=== PATIENT | female | born 1975 | race Two or more races ===

== ENCOUNTER → 2016-09-21 | Outpatient (CLI) | payer OTHER | LOC: MW.CHOBGYN 12:46 | PROVIDERS: ATTEND Nurse Practitioner Women's Health | DX: R39.9 Unspecified symptoms and signs involving the genitourinary system (principal); N92.0 Excessive and frequent menstruation with regular cycle | CPT/HCPCS: 36415; 81001; 83001; 83002; 84144; 84443; 84703; 85025 ==

== ENCOUNTER → 2016-09-22 | Outpatient (CLI) | payer MEDICAID, OTHER ==
--- NOTE | 2016-09-22 16:23 | US ---
EXAMINATION: Transvaginal pelvic ultrasound HISTORY: Excessive and frequent menstruation COMPARISON: 06/24/2014 TECHNIQUE: Grayscale, color Doppler, and spectral Doppler images obtained transvaginally. FINDINGS: The uterus appears normal in size, contour, and echogenicity without a focal mass. Endomet rial stripe thickness measures 9 mm. No significant free pelvic fluid. Both the left and right ovaries appear normal size, contour, and echogenicity demonstrating normal c olor spectral Doppler flow. Small follicles noted bilaterally. No adnexal masses. IMPRESSION: Unremarkable transvaginal pelvic ultrasound.
== END ==
LOC: MW.US 12:55
PROVIDERS: ATTEND Nurse Practitioner Women's Health
DX: N92.0 Excessive and frequent menstruation with regular cycle (principal)
CPT/HCPCS: 76830; 76830-26

== ENCOUNTER 2018-09-20 03:38 | Inpatient (IN) | payer OTHER ==
[2018-09-20] MEDS ORDERED: Misoprostol 25 MCG (1/4 of 100 MCG) Tab VAG PRN ×2 (04:00)
[2018-09-20] MEDS ORDERED: Butorphanol 1 MG/ML SDV IVPUSH PRN ×2 (04:00→04:58)
[2018-09-20] MEDS ORDERED: Carboprost Tromethamine 250 MCG/1 ML Amp IM PRN ×2 (04:00→04:58)
[2018-09-20] MEDS ORDERED: Sodium Chloride 0.9% 2.5 ML Syringe FLUSH PRN ×2 (04:00→04:58)
[2018-09-20] MEDS ORDERED: Oxytocin/0.9 % Sodium Chloride 30 UNIT/500 ML BAG IV SCH ×3 (04:00→05:00)
[2018-09-20] MEDS ORDERED: Nalbuphine 10 MG/1 ML Vial IVPUSH PRN ×2 (04:00→04:58)
[2018-09-20] MEDS ORDERED: Sodium Chloride 0.9% 10 ML Syringe FLUSH PRN ×2 (04:00→04:58)
[2018-09-20] MEDS ORDERED: Ondansetron 4 MG/2 ML SDV IV PRN (04:00)
[2018-09-20] MEDS ORDERED: Sodium Chloride 0.9% 10 ML SDV IV PRN ×2 (04:00→04:58)
[2018-09-20] MEDS ORDERED: Lactated Ringers 1,000 ML IV SCH (04:00)
[2018-09-20] MEDS ORDERED: Water For Irrigation,Sterile 1,000 ML Container IRR PRN ×2 (04:00→04:58)
[2018-09-20] MEDS ORDERED: Methylergonovine 0.2 MG/1 ML Amp IM PRN ×2 (04:00→04:58)
[2018-09-20] MEDS ORDERED: Tranexamic Acid 1,000 MG in Sodium Chloride 0.9% 100 ML IV PRN ×2 (04:00→04:58)
[2018-09-20] MEDS ORDERED: Lidocaine 1% 50 ML MDV INJECT PRN ×2 (04:00→04:58)
[2018-09-20] MEDS ORDERED: Terbutaline 1 MG/ML SDV SUBCUT PRN (04:00)
[2018-09-20] MEDS ORDERED: Misoprostol 200 MCG Tab PO PRN ×2 (04:00→04:58)
--- NOTE | 2018-09-20 04:03 | PCM.LDHP ---
L&D History of Present Illness - General Date of Service: 09/20/18 Admit Problem/Dx: Admission Diagnosis/Problem Admission Diagnosis/Problem Source of Information: Patient History Limitations: Reports: No Limitations - History of Present Illness Improves with: Reports: None Worsens with: Reports: None Associated Symptoms: Reports: N - Related Data Allergies/Adverse Reactions: Allergies Allergy/AdvReac Type Severity Reaction Status Date / Time No Known Allergies Allergy Verified 09/09/18 13:15 Home Medications: Home Meds PNV95/Ferrous Fumarate/FA [ Multivitamins] 1 tab PO DAILY 01/06/15 [ History] glyBURIDE/Metformin HCl [Glyburid-Metformin 1.25-250 mg] 2.5 mg PO DAILY [History] Past Medical History - Past Health History Medical/Surgical History: Denies Medical/Surgical History - Past Surgical History Other Female Surgeries/Procedures: reversal 2008 H&P Review of Systems - Review of Systems: Review Of Systems: See Below General: Reports: No Symptoms HEENT: Reports: No Symptoms Pulmonary: Reports: No Symptoms Cardiovascular: Reports: No Symptoms Gastrointestinal: Reports: No Symptoms Genitourinary: Reports: No Symptoms Musculoskeletal: Reports: No Symptoms Skin: Reports: No Symptoms Psychiatric: Reports: No Symptoms Neurological: Reports: No Symptoms Hematologic/Lymphatic: Reports: No Symptoms Immunologic: Reports: No Symptoms L&D Exam - Exam Exam: See Below - Vital Signs Weight: 108.862 kg - OB Specific Fundal Height In cm: 38 Contraction Intensity: Mild Movement: Active Heart Tones: Present Presentation: Vertex - Freedman Score Freedman Score Cervix Position: Midposition Freedman Score Consistency: Soft Freedman Score Effacement: 51-70% Freedman Score Dilation: 1-2 cm Freedman Score Infant's Station: -3 Freedman Score Total: 6 - Exam General: Alert, Oriented HEENT: PERRLA, Conjunctiva Clear, EACs Clear, EOMI, Hearing Intact, Mucosa Moist & [place], Nares Patent, Normal Nasal Septum, Posterior Pharynx Clear, TMs Clear Neck: Supple, Trachea Midline Lungs: Clear to Auscultation, Normal Respiratory Effort Cardiovascular: Regular Rate, Regular Rhythm GI/Abdominal Exam: Normal Bowel Sounds, Soft, Non-Tender, No Organomegaly, No Distention, No Abnormal Bruit, No Mass, Pelvis Stable Rectal Exam: Normal Exam, Normal Rectal Tone Genitourinary: Normal external exam, Normal bimanual exam, Normal speculum exam Back Exam: Normal Inspection, Full Range of Motion Extremities: Normal Inspection, Normal Range of Motion, Non-Tender, No Pedal Edema, Normal Capillary Refill Skin: Warm, Dry, Intact Neurological: Cranial Nerves Intact, Reflexes Equal Bilateral Psychiatric: Alert, Normal Affect, Normal Mood Problem List Initiated/Reviewed/Updated: Yes Orders Last 24hrs: IUP 38wks gestational DM and advance maternal age admitted for elective induction.
[2018-09-20] MEDS ORDERED: Misoprostol 25 MCG (1/4 of 100 MCG) Tab PO ONE (04:47)
[2018-09-20] MEDS: Lactated Ringers 1,000 ML IV SCH ×3 (08:58→11:00)
[2018-09-20] MEDS ORDERED: fentaNYL 100 MCG/2 ML SDV ONE (10:31)
[2018-09-20] MEDS ORDERED: Ropivacaine 0.2% 2 MG/ML 20 ML SDV ONE (10:32)
[2018-09-20] MEDS ORDERED: Ropivacaine HCl/PF 100 ML ONE (10:32)
--- NOTE | 2018-09-20 11:11 | PCM.PREANE ---
Preanesthetic Assessment - Anesthesia/Transfusion/Family Hx Family History of Anesthesia Reaction: No - Review of Systems General: No Symptoms Pulmonary: No Symptoms Cardiovascular: No Symptoms Gastrointestinal: No Symptoms Neurological: No Symptoms Other: Reports: None - Physical Assessment Height: 1.57 m Weight: 108.862 kg ASA Class: 2 (tongue piercing) Mental Status: Alert & Oriented x3 Dentition: Reports: Normal Dentition ROM/Head Extension: Full - Lab Values: Laboratory Last Values WBC 9.45 K/uL (4.0-11.0) 09/20/18 04:27 RBC 4.40 M/uL (4.30-5.90) 09/20/18 04:27 Hgb 11.7 g/dL (12.0-16.0) L 09/20/18 04:27 Hct 35.9 % (36.0-46.0) L 09/20/18 04:27 MCV 81.6 fL (80.0-98.0) 09/20/18 04:27 MCH 26.6 pg (27.0-32.0) L 09/20/18 04:27 MCHC 32.6 g/dL (31.0-37.0) 09/20/18 04:27 RDW Std Deviation 39.6 fl (28.0-62.0) 09/20/18 04:27 RDW Coeff of Delaney 13 % (11.0-15.0) 09/20/18 04:27 Plt Count 244 K/uL (150-400) 09/20/18 04:27 MPV 10.70 fL (7.40-12.00) 09/20/18 04:27 Nucleated RBC % 0.0 /100WBC 09/20/18 04:27 Nucleated RBCs # 0 K/uL 09/20/18 04:27 Blood Type A POSITIVE 09/20/18 04:27 Antibody Screen NEGATIVE 09/20/18 04:27 - Allergies Allergies/Adverse Reactions: Allergies Allergy/AdvReac Type Severity Reaction Status Date / Time No Known Allergies Allergy Verified 09/09/18 13:15 - Acknowledgements Anesthesia Type Planned: Epidural Pt an Appropriate Candidate for the Planned Anesthesia: Yes Alternatives and Risks of Anesthesia Discussed w Pt/Guardian: Yes Pt/Guardian Understands and Agrees with Anesthesia Plan: Yes PreAnesthesia Questionnaire - Past Health History Medical/Surgical History: Denies 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 reversed 2009 - Past Surgical History Other Female Surgeries/Procedures: reversal 2008 - SUBSTANCE USE Smoking Status *Q: Never Smoker Second Hand Smoke Exposure: No Recreational Drug Use History: No - HOME MEDS Home Medications: Home Meds PNV95/Ferrous Fumarate/FA [ Multivitamins] 1 tab PO DAILY 01/06/15 [ History] glyBURIDE/Metformin HCl [Glyburid-Metformin 1.25-250 mg] 2.5 mg PO DAILY [History] - CURRENT (IN HOUSE) MEDS Current Meds: Current Medications Butorphanol Tartrate (Stadol) 1 mg IVPUSH Q1H PRN PRN Reason: Pain Carboprost Tromethamine (Hemabate Ds) 250 mcg IM ASDIRECTED PRN PRN Reason: Post Hemorrhage Oxytocin/Sodium Chloride (Oxytocin 30 Unit/500 Ml-Ns) 30 unit in 500 mls @ 2 mls/hr IV TITRATE JORDEN; Protocol Lactated Ringer's (Ringers, Lactated) 1,000 mls @ 150 mls/hr IV ASDIRECTED JORDEN Last Admin: 09/20/18 11:00 Dose: 150 mls/hr Oxytocin/Sodium Chloride (Oxytocin 30 Unit/500 Ml-Ns) 30 unit in 500 mls @ 500 mls/hr IV TITRATE JORDEN Tranexamic Acid 1,000 mg/ (Sodium Chloride) 110 mls @ 660 mls/hr IV ONETIME PRN PRN Reason: Bleeding Lidocaine HCl (Xylocaine 1%) 50 ml INJECT ONETIME PRN PRN Reason: Laceration repair Methylergonovine Maleate (Methergine) 0.2 mg IM ASDIRECTED PRN PRN Reason: Post Hemorrhage Misoprostol (Cytotec) 25 mcg VAG ONETIME PRN PRN Reason: Cervical Ripening Last Admin: 09/20/18 04:50 Dose: 25 mcg Misoprostol (Cytotec) 25 mcg VAG Q4H PRN PRN Reason: Cervical Ripening Misoprostol (Cytotec) 200 mcg PO ONETIME PRN PRN Reason: Post Hemorrhage Nalbuphine HCl (Nubain) 10 mg IVPUSH Q1H PRN PRN Reason: Pain (severe 7-10) Sodium Chloride (Saline Flush) 10 ml FLUSH ASDIRECTED PRN PRN Reason: Keep Vein Open Sodium Chloride (Saline Flush) 2.5 ml FLUSH ASDIRECTED PRN PRN Reason: Keep Vein Open Sodium Chloride (Normal Saline) 10 ml IV ASDIRECTED PRN PRN Reason: IV Use Sodium Chloride (Saline Flush) 10 ml FLUSH ASDIRECTED PRN PRN Reason: Keep Vein Open Sodium Chloride (Saline Flush) 2.5 ml FLUSH ASDIRECTED PRN PRN Reason: Keep Vein Open Sodium Chloride (Normal Saline) 10 ml IV ASDIRECTED PRN PRN Reason: IV Use Sterile Water (Sterile Water For Irrigation) 1,000 ml IRR ASDIRECTED PRN PRN Reason: delivery Terbutaline Sulfate (Brethine) 0.25 mg SUBCUT ASDIRECTED PRN PRN Reason: Tacysystole Discontinued Medications Fentanyl (Sublimaze) Confirm Administered Dose 300 mcg .ROUTE .STK-MED ONE Stop: 09/20/18 10:32 Ropivacaine (Naropin 0.2%) Confirm Administered Dose 100 mls @ as directed .ROUTE .STK-MED ONE Stop: 09/20/18 10:33 Misoprostol (Cytotec) 25 mcg PO ONETIME ONE Stop: 09/20/18 04:48 Last Admin: 09/20/18 04:57 Dose: 25 mcg Ropivacaine (Naropin 0.2%) Confirm Administered Dose 20 ml .ROUTE .STK-MED ONE Stop: 09/20/18 10:33
[2018-09-20] MEDS ORDERED: Ibuprofen 400 MG Tab PO PRN (15:13)
[2018-09-20] MEDS ORDERED: Docusate Sodium 100 MG Cap PO PRN (15:13)
[2018-09-20] MEDS ORDERED: oxyCODONE 5 MG Tab PO PRN (15:13)
[2018-09-20] MEDS ORDERED: Benzocaine/Menthol 20%-0.5% Spray 78 GM Cannister TOP PRN (15:13)
[2018-09-20] MEDS ORDERED: Acetaminophen 500 MG Tab PO PRN ×2 (15:13)
[2018-09-20] MEDS ORDERED: Witch Hazel Medicated Pads 40/Jar TOP PRN (15:13)
[2018-09-20] MEDS ORDERED: Bisacodyl 10 MG Supp RECTAL PRN (15:13)
[2018-09-20] MEDS ORDERED: Lanolin 100% Cream 7 GM Tube TOP PRN (15:13)
--- NOTE | 2018-09-20 16:13 | OR ---
SURGEON: Jim Molina MD DATE OF PROCEDURE: DELIVERY NOTE: Ms. Ohara is a 43-year-old patient. She is followed in our practice primarily by me. She is a gestational diabetic and she had advanced maternal age. Her GBS status was negative. She is followed according to the diabetes protocol and she has weekly reactive NST. She is 37-38 weeks. She is admitted for elective induction because of advanced maternal age and because of her diabetes. She is induced with Cytotec. She responded to it very well and she started having regular contraction. She had epidural anesthesia for labor analgesia. The patient's heart rate was category 1 through the entire process of labor. The patient eventually became complete-complete and she was able to accomplish normal spontaneous vaginal delivery of a female fetus, cried immediately. score reported to be 8 and 9. Placenta delivered spontaneous, complete, and intact. No episiotomy is needed, and there was no vaginal tear or perineal tear. Estimated blood loss is 250 to 300 mL. There was no complication in the process of the labor and in this patient. ELAINE / NINA /[id number]
[2018-09-20] MEDS: Ibuprofen 800 MG Tab PO PRN (21:47)
[2018-09-21 08:09] VITALS: BP 144/78
[2018-09-21] MEDS: Ibuprofen 800 MG Tab PO PRN ×2 (08:16→16:11)
--- NOTE | 2018-09-21 08:53 | PCM.PNPP ---
- General Info Date of Service: 09/21/18 Functional Status: Reports: Pain Controlled, Tolerating Diet, Ambulating, Urinating - Review of Systems General: Reports: No Symptoms HEENT: Reports: No Symptoms Pulmonary: Reports: No Symptoms Cardiovascular: Reports: No Symptoms Gastrointestinal: Reports: No Symptoms Genitourinary: Reports: No Symptoms Musculoskeletal: Reports: No Symptoms Skin: Reports: No Symptoms Neurological: Reports: No Symptoms Psychiatric: Reports: No Symptoms - General Info Date of Service: 09/21/18 - Patient Data Vital Signs - Most Recent: Last Vital Signs Temp 36.6 C 09/21/18 07:35 Pulse 73 09/21/18 07:35 Resp 17 09/21/18 07:35 BP 144/78 H 09/21/18 07:35 Pulse Ox 95 09/21/18 07:35 Weight - Most Recent: 108.862 kg Lab Results - Last 24 Hours: Laboratory Results - last 24 hr 09/21/18 Range/Units 05:55 Hgb 11.3 L (12.0-16.0) g/dL Hct 35.8 L (36.0-46.0) % Med Orders - Current: Current Medications Acetaminophen (Tylenol Extra Strength) 500 mg PO Q4H PRN PRN Reason: Pain Acetaminophen (Tylenol Extra Strength) 1,000 mg PO Q4H PRN PRN Reason: Pain Benzocaine/Menthol (Dermoplast Pain Relief 20%-0.5% Andrews) 78 gm TOP ASDIRECTED PRN PRN Reason: Perineal Comfort Measure Last Admin: 09/20/18 21:47 Dose: 1 applic Bisacodyl (Dulcolax) 10 mg RECTAL ONETIME PRN PRN Reason: Constipation Butorphanol Tartrate (Stadol) 1 mg IVPUSH Q1H PRN PRN Reason: Pain Carboprost Tromethamine (Hemabate Ds) 250 mcg IM ASDIRECTED PRN PRN Reason: Post Hemorrhage Docusate Sodium (Colace) 100 mg PO BID PRN PRN Reason: Constipation Last Admin: 09/21/18 08:19 Dose: 100 mg Emollient Ointment (Lansinoh Hpa) 0 gm TOP ASDIRECTED PRN PRN Reason: Sore Nipples Last Admin: 09/20/18 21:47 Dose: 1 applic Oxytocin/Sodium Chloride (Oxytocin 30 Unit/500 Ml-Ns) 30 unit in 500 mls @ 2 mls/hr IV TITRATE JORDEN; Protocol Last Titration: 09/20/18 13:30 Dose: 8 munits/min, 8 mls/hr Lactated Ringer's (Ringers, Lactated) 1,000 mls @ 150 mls/hr IV ASDIRECTED JORDEN Last Admin: 09/20/18 11:00 Dose: 150 mls/hr Oxytocin/Sodium Chloride (Oxytocin 30 Unit/500 Ml-Ns) 30 unit in 500 mls @ 500 mls/hr IV TITRATE JORDEN Tranexamic Acid 1,000 mg/ (Sodium Chloride) 110 mls @ 660 mls/hr IV ONETIME PRN PRN Reason: Bleeding Ibuprofen (Motrin) 400 mg PO Q4H PRN PRN Reason: Pain Ibuprofen (Motrin) 800 mg PO Q6H PRN PRN Reason: Pain Last Admin: 09/21/18 08:16 Dose: 800 mg Lidocaine HCl (Xylocaine 1%) 50 ml INJECT ONETIME PRN PRN Reason: Laceration repair Methylergonovine Maleate (Methergine) 0.2 mg IM ASDIRECTED PRN PRN Reason: Post Hemorrhage Misoprostol (Cytotec) 25 mcg VAG ONETIME PRN PRN Reason: Cervical Ripening Last Admin: 09/20/18 04:50 Dose: 25 mcg Misoprostol (Cytotec) 25 mcg VAG Q4H PRN PRN Reason: Cervical Ripening Misoprostol (Cytotec) 200 mcg PO ONETIME PRN PRN Reason: Post Hemorrhage Nalbuphine HCl (Nubain) 10 mg IVPUSH Q1H PRN PRN Reason: Pain (severe 7-10) Oxycodone HCl (Oxycodone) 5 mg PO Q2H PRN PRN Reason: Pain Sodium Chloride (Saline Flush) 10 ml FLUSH ASDIRECTED PRN PRN Reason: Keep Vein Open Sodium Chloride (Saline Flush) 2.5 ml FLUSH ASDIRECTED PRN PRN Reason: Keep Vein Open Sodium Chloride (Normal Saline) 10 ml IV ASDIRECTED PRN PRN Reason: IV Use Sodium Chloride (Saline Flush) 10 ml FLUSH ASDIRECTED PRN PRN Reason: Keep Vein Open Sodium Chloride (Saline Flush) 2.5 ml FLUSH ASDIRECTED PRN PRN Reason: Keep Vein Open Sodium Chloride (Normal Saline) 10 ml IV ASDIRECTED PRN PRN Reason: IV Use Sterile Water (Sterile Water For Irrigation) 1,000 ml IRR ASDIRECTED PRN PRN Reason: delivery Terbutaline Sulfate (Brethine) 0.25 mg SUBCUT ASDIRECTED PRN PRN Reason: Tacysystole Witch Candy (Tucks) 1 pad TOP ASDIRECTED PRN PRN Reason: comfort care Last Admin: 09/20/18 21:46 Dose: 1 applic Discontinued Medications Fentanyl (Sublimaze) Confirm Administered Dose 300 mcg .ROUTE .STK-MED ONE Stop: 09/20/18 10:32 Ropivacaine (Naropin 0.2%) Confirm Administered Dose 100 mls @ as directed .ROUTE .STK-MED ONE Stop: 09/20/18 10:33 Misoprostol (Cytotec) 25 mcg PO ONETIME ONE Stop: 09/20/18 04:48 Last Admin: 09/20/18 04:57 Dose: 25 mcg Ropivacaine (Naropin 0.2%) Confirm Administered Dose 20 ml .ROUTE .STK-MED ONE Stop: 09/20/18 10:33 - Infant Interaction Disposition, : [place] in Room with Family Interaction: Holding Infant Feeding: Breastfed Infant; Nursed Well Support Person: - Recovery Exam Fundal Tone: Firm Fundal Level: 1 Fingerbreadths Below Umbilicus Fundal Placement: Midline Lochia Amount: Scant Lochia Color: Rubra/Red Perineum Description: Intact, Minimal Bruising/Swelling Episiotomy/Laceration: None Bladder Status: Voiding - Exam General: Alert, Oriented HEENT: Pupils Equal Neck: Supple Lungs: Normal Respiratory Effort GI/Abdominal Exam: Non-Tender Extremities: No: No Pedal Edema (2+ bilateral no Homans no erythema or tenderness. ) Skin: Warm, Dry, Intact Neurological: No New Focal Deficit Psy/Mental Status: Alert, Normal Affect, Normal Mood - Problem List & Annotations (1) Vaginal delivery SNOMED Code(s): 321900269 Code(s): O80 - ENCOUNTER FOR FULL-TERM UNCOMPLICATED DELIVERY Status: Acute Current Visit: Yes - Problem List Review Problem List Initiated/Reviewed/Updated: Yes - Assessment Assessment:: PPD#1 after , stable minimal lochia, tolerating diet. Borderline BP, will stay until 24 hours and recheck prior to discharge - Plan Plan:: Anticipate discharge this afternoon. Return for BP check tomorrow. Discharge instructions reviewed.
--- NOTE | 2018-09-21 13:26 | PCM48HPAN ---
Post Anesthesia Note - EVALUATION WITHIN 48HRS OF ANESTHETIC Vital Signs in Normal Range: Yes Patient Participated in Evaluation: Yes Respiratory Function Stable: Yes Airway Patent: Yes Cardiovascular Function Stable: Yes Hydration Status Stable: Yes Pain Control Satisfactory: Yes Nausea and Vomiting Control Satisfactory: Yes Mental Status Recovered: Yes Resp Rate: 17 - COMMENTS/OBSERVATIONS Free Text/Narrative:: Pt without complaints related to anesthesia. No concerns at this time.
== END 2018-09-21 17:46 | disposition home or self-care (01) | DRG 807 ==
LOC: MW.OBCHECK 03:38 → MW.OB 03:40 → OBSVTOIN 15:14 → MW.OB 15:14
PROVIDERS: ADMIT Obstetrics & Gynecology; ATTEND Obstetrics & Gynecology
PROC: 10E0XZZ Delivery of Products of Conception, External Approach (ICD-10-PCS; principal; 2018-09-20)
PROC: 3E033VJ Introduction of Other Hormone into Peripheral Vein, Percutaneous Approach (ICD-10-PCS; 2018-09-20)
PROC: 10907ZC Drainage of Amniotic Fluid, Therapeutic from Products of Conception, Via Natural or Artificial Opening (ICD-10-PCS; 2018-09-20)
PROC: 3E0S3BZ Introduction of Anesthetic Agent into Epidural Space, Percutaneous Approach (ICD-10-PCS; 2018-09-20)
PROC: 00HU33Z Insertion of Infusion Device into Spinal Canal, Percutaneous Approach (ICD-10-PCS; 2018-09-20)
DX: O24.425 Gestational diabetes mellitus in childbirth, controlled by oral hypoglycemic drugs (principal); Z37.0 Single live birth; Z79.84 Long term (current) use of oral hypoglycemic drugs; Z3A.37 37 weeks gestation of pregnancy; Z79.899 Other long term (current) drug therapy
CPT/HCPCS: 36415; 59025; 59409; 85014; 85018; 85027; 86850; 86900; 86901; A9270-GY; J2590; J7120

== ENCOUNTER 2019-04-19 09:24 | Emergency (ER) | payer OTHER ==
--- NOTE | 2019-04-19 09:42 | EDM.PDOC ---
ED HPI GENERAL MEDICAL PROBLEM - General Chief Complaint: Lower Extremity Injury/Pain Stated Complaint: LEFT ANKLE PAIN Time Seen by Provider: 04/19/19 09:42 Source of Information: Reports: Patient - History of Present Illness INITIAL COMMENTS - FREE TEXT/NARRATIVE: HISTORY AND PHYSICAL: History of present illness: [Patient slipped just prior to arrival causing left ankle pain unable bear weight due to pain 5 out of 10 pain nonradiating swelling over the lateral malleolus no bruising no open lesion entirely limb neurovascularly intact ] Review of systems: As per history of present illness and below otherwise all systems reviewed and negative. Past medical history: As per history of present illness and as reviewed below otherwise noncontributory. Surgical history: As per history of present illness and as reviewed below otherwise noncontributory. Social history: No reported history of drug or alcohol abuse. Family history: As per history of present illness and as reviewed below otherwise noncontributory. Physical exam: HEENT: Atraumatic, normocephalic, pupils reactive, negative for conjunctival pallor or scleral icterus, mucous membranes moist, throat clear, neck supple, nontender, trachea midline. Lungs: Clear to auscultation, breath sounds equal bilaterally, chest nontender. Heart: S1S2, regular, negative for clicks, rubs, or JVD. Abdomen: Soft, nondistended, nontender. Negative for masses or hepatosplenomegaly. Negative for costovertebral tenderness. Pelvis: Stable nontender. Genitourinary: Deferred. Rectal: Deferred. Extremities: Atraumatic, negative for cords or calf pain. Neurovascular unremarkable. left lower extremity noted above Neuro: Awake, alert, oriented. Cranial nerves II through XII unremarkable. Cerebellum unremarkable. Motor and sensory unremarkable throughout. Exam nonfocal. Diagnostics: [Ankle 3 views ] Therapeutics: [CAM boot crutches nonweightbearing Rest ice ibuprofen ] Impression: [ left ankle injury ] Definitive disposition and diagnosis as appropriate pending reevaluation and review of above. 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 reversed 2009 - Past Surgical History Other Female Surgeries/Procedures: reversal 2008 Social & Family History - Family History Family Medical History: Noncontributory - Tobacco Use Smoking Status *Q: Never Smoker - Caffeine Use Caffeine Use: Reports: Coffee - Recreational Drug Use Recreational Drug Use: No Review of Systems - Review of Systems Review Of Systems: See Below ED EXAM, GENERAL - Physical Exam Exam: See Below Course - Vital Signs Last Recorded V/S: Last Vital Signs Temp 96.8 F 04/19/19 09:29 Pulse 82 04/19/19 09:29 Resp 17 04/19/19 09:29 BP 138/82 04/19/19 09:29 Pulse Ox 95 04/19/19 09:29 - Orders/Labs/Meds Orders: Active Orders 24 hr Category Date Time Status Ankle Min 3V Lt [CR] Stat Exams 04/19/19 09:32 Taken Departure - Departure Time of Disposition: 09:55 Disposition: Home, Self-Care 01 Condition: Good Clinical Impression: Left ankle injury - Discharge Information Referrals: Jim Molina MD [Primary Care Provider] - Forms: ED Department Discharge Additional Instructions: The following information is given to patients seen in the emergency department who are being discharged to home. This information is to outline your options for follow-up care. We provide all patients seen in our emergency department with a follow-up referral. The need for follow-up, as well as the timing and circumstances, are variable depending upon the specifics of your emergency department visit. If you don't have a primary care physician on staff, we will provide you with a referral. We always advise you to contact your personal physician following an emergency department visit to inform them of the circumstance of the visit and for follow-up with them and/or the need for any referrals to a consulting specialist. The emergency department will also refer you to a specialist when appropriate. This referral assures that you have the opportunity for follow-up care with a specialist. All of these measure are taken in an effort to provide you with optimal care, which includes your follow-up. Under all circumstances we always encourage you to contact your private physician who remains a resource for coordinating your care. When calling for follow-up care, please make the office aware that this follow-up is from your recent emergency room visit. If for any reason you are refused follow-up, please contact the [facility] emergency department at and asked to speak to the emergency department charge nurse. Sepsis Event Note - Evaluation Sepsis Screening Result: No Definite Risk - Focused Exam Vital Signs: Vital Signs Temp Pulse Resp BP Pulse Ox 04/19/19 09:29 96.8 F 82 17 138/82 95 Date Exam was Performed: 04/19/19 Time Exam was Performed: 09:54 - My Orders Last 24 Hours: My Active Orders 04/19/19 09:32 Ankle Min 3V Lt [CR] Stat - Assessment/Plan Last 24 Hours: My Active Orders 04/19/19 09:32 Ankle Min 3V Lt [CR] Stat
--- NOTE | 2019-04-19 09:54 | CR ---
INDICATION: Pain. TECHNIQUE: Three views of the left ankle. FINDINGS: No fracture, dislocation, erosion, or intrinsic lesion. The tibiotalar joint space is intact. There may be soft tissue swelling about the ankle please correlate clinically. Small plantar calcaneal spur. IMPRESSION: No acute left ankle fracture or dislocation. Dictated by Filiberto Garcia MD @ Apr 19 2019 9:52AM Signed by Dr. Filiberto Garcia @ Apr 19 2019 9:52AM
[2019-04-19 10:04] VITALS: BP 138/82; PULSE 82
== END 2019-04-19 10:19 | disposition home or self-care (01) ==
LOC: MW.ED 09:24
DX: S99.912A Unspecified injury of left ankle, initial encounter (principal); W01.0XXA Fall on same level from slipping, tripping and stumbling without subsequent striking against object, initial encounter
CPT/HCPCS: 73610-26-LT; 73610-LT; 99283-25

== ENCOUNTER 2022-08-04 08:07 | Day surgery (SDC) | payer BC ==
[2022-08-02 10:28] LABS: BLOOD UREA NITROGEN,BUN 13 mg/dL (7.0-18.0); CARBON DIOXIDE,CO2 27.5 mmol/L (21.0-32.0); CHLORIDE,CL 105 mmol/L (98-107); GLUCOSE RANDOM 107 mg/dL (74-106); POTASSIUM,K 3.6 mmol/L (3.5-5.1); SODIUM,NA 138 mmol/L (136-145)
[2022-08-02 10:29] LABS: ESTIMATED GFR 107 mL/min (>60)
[~2022-08-04 08:07] MED LIST: Sodium Chloride 0.9% 10 ML Syringe FLUSH PRN; Sodium Chloride 0.9% 2.5 ML Syringe FLUSH PRN; Sodium Chloride 0.9% 20 ML SDV IV PRN; ceFAZolin 1 GM in Premix Bag 1 BAG IV ONE
[2022-08-04] MEDS ORDERED: Ondansetron 4 MG/2 ML SDV IVPUSH PRN ×2 (08:31→12:01)
[2022-08-04] MEDS ORDERED: Morphine 2 MG/ML SYRINGE IVPUSH PRN (08:31)
[2022-08-04] MEDS ORDERED: fentaNYL 50 MCG/ML SDV IVPUSH PRN (08:31)
[2022-08-04] MEDS ORDERED: Metoclopramide 10 MG/2 ML SDV IVPUSH PRN (08:31)
[2022-08-04] MEDS ORDERED: HYDROmorphone 1 MG/ML Syringe IVPUSH PRN (08:31)
[2022-08-04] MEDS ORDERED: Albuterol 0.083% 2.5 MG/3 ML Neb Soln NEB PRN (08:31)
[2022-08-04] MEDS ORDERED: Naloxone 0.4 MG/ML SDV IVPUSH PRN (08:31)
[2022-08-04] MEDS: Lactated Ringers 1,000 ML IV SCH ×2 (08:38→14:33)
[2022-08-04] MEDS ORDERED: Propofol 200 MG/20 ML SDV ONE ×2 (08:48→11:35)
[2022-08-04] MEDS ORDERED: fentaNYL 100 MCG/2 ML SDV ONE (08:48)
[2022-08-04] MEDS ORDERED: Lidocaine 2% 5 ML SDV ONE (09:42)
[2022-08-04] MEDS ORDERED: Rocuronium Bromide 50 MG/5 ML Syringe ONE (09:42)
[2022-08-04] MEDS ORDERED: Magnesium Sulfate (4.06 MEQ/ML) 5 GM/10 ML SDV ONE (10:52)
[2022-08-04] MEDS ORDERED: ceFAZolin 2 GM Vial ONE (11:07)
[2022-08-04] MEDS ORDERED: Dexmedetomidine 200 MCG/2 ML SDV ONE (11:29)
[2022-08-04] MEDS ORDERED: Sugammadex Sodium 200 MG/2 ML VIAL ONE (11:29)
[2022-08-04] MEDS ORDERED: Ketorolac 30 MG/ML SDV ONE (11:29)
[2022-08-04] MEDS ORDERED: Ondansetron 4 MG/2 ML SDV ONE (11:29)
[2022-08-04] MEDS ORDERED: Dexamethasone 4 MG/ML 5 ML MDV ONE (11:29)
[2022-08-04] MEDS ORDERED: Fluorescein 5 ML Vial ONE (11:47)
[2022-08-04] MEDS ORDERED: Promethazine 25 MG/ML SDV IM PRN (12:01)
[2022-08-04] MEDS ORDERED: Ketorolac 30 MG/ML SDV IVPUSH ONE (12:01)
[2022-08-04] MEDS ORDERED: Acetaminophen/oxyCODONE 325-5 MG Tab PO PRN (12:01)
[2022-08-04] MEDS: Morphine 4 MG/ML Syringe IVPUSH PRN ×2 (14:24→18:36)
[2022-08-04] MEDS: Acetaminophen/oxyCODONE 325-5 MG Tab PO PRN ×2 (16:10→20:29)
[2022-08-04] MEDS ORDERED: Ketorolac 30 MG/ML SDV IVPUSH PRN (17:30)
[2022-08-05] MEDS: Morphine 4 MG/ML Syringe IVPUSH PRN (00:07)
[2022-08-05] MEDS: Acetaminophen/oxyCODONE 325-5 MG Tab PO PRN (04:31)
[2022-08-05 07:09] LABS: CARBON DIOXIDE,CO2 25.8 mmol/L (21.0-32.0)
[2022-08-05 08:32] VITALS: BP 124/78; PULSE 87
== END 2022-08-05 10:55 | disposition home or self-care (01) ==
LOC: MW.SDS 08:07 → MW.MS 13:48 → MW.SDS 08-05 10:55
PROVIDERS: ATTEND Obstetrics & Gynecology
DX: N83.12 Corpus luteum cyst of left ovary (principal); N83.11 Corpus luteum cyst of right ovary; N83.8 Other noninflammatory disorders of ovary, fallopian tube and broad ligament; N80.03 Adenomyosis of the uterus; I10 Essential (primary) hypertension; E03.9 Hypothyroidism, unspecified; E11.9 Type 2 diabetes mellitus without complications; Z79.84 Long term (current) use of oral hypoglycemic drugs; Z79.890 Hormone replacement therapy; Z79.899 Other long term (current) drug therapy
CPT/HCPCS: 36415; 58262; 80048; 84703; 85025; 85027; 86850; 86900; 86901; A9270; J0131; J0690; J1100; J1170; J1885; J2270; J2704; J3010; J3475; J3490; J7120; 00944; J2405; J7030